=== PATIENT | female | born 1990 | race Caucasian/White ===

== ENCOUNTER 2024-04-26 11:01 | Emergency (ER) | payer BC, SELFPAY ==
[2024-04-26 11:16] VITALS: BP 99/61; PULSE 72; RESP 16; TEMP 36.4; O2SAT 100
--- NOTE | 2024-04-26 11:36 | ED.BACK ---
HPI - Back Pain/Injury General Chief Complaint: Back Pain/Injury Stated Complaint: Back Pain Time Seen by Provider: 04/26/24 11:30 Source: patient, RN notes reviewed and old records reviewed Mode of arrival: ambulatory Limitations: no limitations History of Present Illness HPI Narrative: 33-year-old female who presents to [facility] with complaints of 3 day history of lower back pain with spasms. Patient reports unsure recent injury does have child that she has lifted on and playing with niece and son during [place] visit. Patient is from [facility]. Patient reports that she has been taking Tylenol and Ibuprofen, took Flexeril, used Biofreeze and also has used Lidocaine patches. Patient has had prior back surgery to L5-S1 with fusion. Patient reports no radiation of pain to legs. MD elicited complaint: back pain Pertinent past history: prior back pain and back surgery Onset (ago): day(s) (3) Pain scale (0-10): 6 Similar Symptoms Previously: Yes Treatments prior to arrival: NSAIDS, acetaminophen and other (Lido patch, Flexeril, and Biofreeze ointment) Related Data Home Medications ?Medication ?Instructions ?Recorded ?Confirmed ?Last Taken ?Type Reglan 04/26/24 Unknown History buspirone 10 mg tablet mg 04/26/24 Unknown History dexmethylphenidate 10 mg mg PO 04/26/24 Unknown History capsule,extended release [id number] escitalopram oxalate 20 mg tablet mg 04/26/24 Unknown History Allergies Allergy/AdvReac Type Severity Reaction Status Date / Time clindamycin Allergy Unknown Rash Verified 04/26/24 11:17 doxycycline Allergy Unknown Rash Verified 04/26/24 11:17 latex Allergy Unknown Rash Verified 04/26/24 11:17 Sulfa (Sulfonamide Allergy Unknown Rash Verified 04/26/24 11:17 Antibiotics) Review of Systems Review of Systems: CONSTITUTIONAL: Denies fever, chills, or sweats. EYES: Denies visual changes, redness, or discharge. ENT: Denies rhinorrhea, congestion, sore throat, or otalgia. CARDIOVASCULAR: Denies chest pain, palpitations, or edema. RESPIRATORY: Denies cough or dyspnea. GASTROINTESTINAL: Denies abdominal pain, nausea, vomiting, or diarrhea. GENITOURINARY: Denies dysuria or hematuria. SKIN: Denies rash or itching. MUSCULOSKELETAL: Reports low back pain with spasming greater left than right back pain, or myalgia. NEUROLOGIC: Denies headache, numbness, or weakness. PSYCHIATRIC: Positive for history of anxiety or depression. All systems reviewed & are unremarkable except as noted in HPI and below PMFSH Past Medical History Medical History (Updated 04/29/24 @ 10:40 by Luisa Kline NP) Gastroparesis ADD (attention deficit disorder) Seasonal allergies Surgical History Surgical History (Updated 04/29/24 @ 10:32 by Luisa Kline NP) Hx of spinal surgery X2 with fusion L5-S1 Social History Social History (Updated 04/29/24 @ 10:35 by Luisa Kline NP) Smoking status: Never smoker Alcohol intake: current Alcohol use details: rare social Substance use type: does not use Living arrangements: with family Additional occupation/education comments: RN Gender identity (if verbalized by the patient): Female Comments At time of signature, agree with nursing past medical, surgical, social and family history. There is no relevant family history pertinent to the presenting complaint Exam Narrative: GENERAL: Well-appearing, well-nourished, and in some acute distress related to back pain HEAD: Normocephalic, atraumatic. EYES: PERRLA and EOMI. ENT: Nares clear, no rhinorrhea or epistaxis. Mucous membranes moist. NECK: Supple.no lymphadenopathy CHEST: Clear to auscultation. No respiratory distress.SAO2 100% on room air HEART: Regular rate and rhythm. No murmur heard. Normal peripheral pulses. ABDOMEN: Soft, nontender, nondistended, normal active bowel sounds. EXTREMITIES: Normal range of motion. No edema.Pain to lumbar region of back with spasms pain greater left side than right, no radiation of pain to legs denies any bowel or bladder dysfunction or any saddle paraesthesia. Patient has increased pain with any bending and with position changes. Patient reports that pain is sharp at times. SKIN: Warm, dry, no rash. NEURO: No focal deficits. Alert and oriented x3. Course Course Emergency Course: Patient is aware of diagnosis, understands and agrees to treatment plan.? Anticipatory guidance given.? Patient agrees to follow-up as directed and is aware of reasons to seek care at the emergency department. Portions of this record may have been created with voice recognition software Level of Care: [facility] Visit Vital Signs Vital signs: Vital Signs Temperature 36.4 C L 04/26/24 11:16 Pulse Rate 72 04/26/24 11:16 Respiratory Rate 16 04/26/24 11:16 Blood Pressure 99/61 L 04/26/24 11:16 Pulse Oximetry 100 04/26/24 11:16 Temperature 36.4 C L 04/26/24 11:16 Pulse Rate 72 04/26/24 11:16 Respiratory Rate 16 04/26/24 11:16 Blood Pressure 99/61 L 04/26/24 11:16 Pulse Oximetry 100 04/26/24 11:16 Reviewed MDM - Back Pain/Injury Differential Diagnosis Differential diagnosis: Likely lumbar radiculopathy, strain of lumbar region and other (muscle strain to back. spasms to back) Medical Records Attestation: I reviewed the patient's medical records. Critical Care Time Critical Care Time Critical Care Time: No Discharge Plan Discharge Clinical Impression: Muscle spasm of back Strain of lumbar spine Qualifiers: Encounter type: initial encounter Qualified Code(s): S39.012A - Strain of muscle, fascia and tendon of lower back, initial encounter Patient Disposition: Home, Self-Care Condition: Stable Instructions: Antibiotic Form, Muscle Spasm (ED), Back Pain (ED) Additional Instructions: Ice and heat to the area for 20-30 minutes Gentle stretching exercises Gentle massage Caution with lifting, bending, stooping, twisting Avoid pushing, pulling take muscle relaxants as directed--caution drowsiness and no driving or alcohol Anti-inflammatory medicine as directed--take with food He may take the muscle relaxant and anti-inflammatory at the same time Follow-up with your PCP if not improving in 5-7 days If your symptoms persist, change or worsen significantly before you can contact your personal physician then please, without delay, go to the emergency department for further evaluation. Follow-up with PCP in 7-10 days or sooner if needed Patient Language: [place]ijani Prescriptions: New prednisone 50 mg tablet 50 mg PO DAILY Qty: 10 0RF Rx Instructions: take with food in am cyclobenzaprine 10 mg tablet 10 mg PO TID PRN (Reason: muscle spasm) Qty: 20 0RF Rx Instructions: can not drive while taking this medication and absolutely no alcohol No Action buspirone 10 mg tablet escitalopram oxalate 20 mg tablet dexmethylphenidate 10 mg capsule,ER biphasic 50-50 PO Reglan Follow-up/Referrals: UNKNOWN,DOCTOR [Primary Care Provider] - Time of Disposition: 11:58 [employer] Coma Scale Eyes: Open Verbal: Oriented and Alert Motor: Follows Commands [employer] Coma Total Score: 15
== END 2024-04-26 12:04 | disposition home or self-care (01) ==
PROVIDERS: Emergency Provider Registered Nurse
DX: M62.830 Muscle spasm of back (principal); S39.012A Strain of muscle, fascia and tendon of lower back, initial encounter; X58.XXXA Exposure to other specified factors, initial encounter; K31.84 Gastroparesis
CPT/HCPCS: 99213; G0463